=== PATIENT | male | born 1945 | race Caucasian/White ===

== ENCOUNTER 2023-02-26 14:51 | Observation (INO) | payer MEDICARE, BC ==
[2023-02-26] MEDS ORDERED: Sodium Chloride 0.9% 1,000 ML IV ONE (15:06)
[2023-02-26 15:36] LABS: ANION GAP 12.9 mmol/L (5-15); CHLORIDE,CL 117 mmol/L (98-107); SODIUM,NA 145 mmol/L (136-145)
[2023-02-26 15:51] LABS: ESTIMATED GFR 104 mL/min (>=60)
[2023-02-26] MEDS ORDERED: Potassium Chloride 20 MEQ in Premix Bag 1 BAG IV ONE (16:51)
[2023-02-26] MEDS ORDERED: NS with KCl 40mEq 1,000 ML IV SCH (17:00)
[2023-02-26] MEDS ORDERED: Iopamidol 755 Mg/ML 75 ML Bottle IVPUSH ONE (17:19)
[2023-02-26] MEDS ORDERED: Sodium Chloride 0.9% 50 ML IV SCH (17:30)
[2023-02-26] MEDS ORDERED: Ondansetron 4 MG/2 ML SDV IV PRN (19:37)
[2023-02-26 20:07] LABS: ANION GAP 9.9 mmol/L (5-15); CHLORIDE,CL 105 mmol/L (98-107); ESTIMATED GFR 86 mL/min (>=60); SODIUM,NA 137 mmol/L (136-145)
[2023-02-26] MEDS ORDERED: Sodium Chloride 0.9% 250 ML IV SCH (20:30)
[2023-02-26] MEDS: Sodium Chloride 0.9% 1,000 ML IV SCH (20:59)
[2023-02-27] MEDS: Sodium Chloride 0.9% 1,000 ML IV SCH (03:43)
[2023-02-27 07:53] LABS: ANION GAP 13.8 mmol/L (5-15)
[2023-02-27] MEDS ORDERED: Magnesium Oxide 500 MG Tab PO ONE (09:05)
[2023-02-27] MEDS ORDERED: Loperamide 2 MG Cap PO ONE (09:11)
== END 2023-02-27 10:28 | disposition home or self-care (01) ==
LOC: KA.ED 14:51 → KA.MS 18:15 → KA.ED 18:30 → KA.MS 19:00 → UNDOADMOB 19:00 → UNDODISOB 02-27 10:28
PROVIDERS: ADMIT Physician Assistant; ATTEND Family Medicine
DX: R55 Syncope and collapse (principal); E87.6 Hypokalemia; K52.9 Noninfective gastroenteritis and colitis, unspecified; D70.9 Neutropenia, unspecified; D64.9 Anemia, unspecified; D69.6 Thrombocytopenia, unspecified; E87.8 Other disorders of electrolyte and fluid balance, not elsewhere classified; R73.03 Prediabetes; E66.9 Obesity, unspecified; M19.90 Unspecified osteoarthritis, unspecified site; Z79.899 Other long term (current) drug therapy; Z98.890 Other specified postprocedural states; Z68.32 Body mass index [BMI] 32.0-32.9, adult
CPT/HCPCS: 36415; 70450; 74177; 80053; 81001; 82330; 82607; 82746; 83605; 83735; 84100; 84484; 85025; 86140; 96365; 99285; A9270; J3480; J3490; J7030; Q9967; 93010; 96361; 99223; G0378

== ENCOUNTER 2023-11-16 18:24 | Emergency (ER) | payer MEDICARE, BC ==
[2023-11-16] MEDS ORDERED: Sodium Chloride 0.9% 10 ML Syringe FLUSH PRN (18:38)
[2023-11-16 18:42] LABS: BASOPHILS ABSOLUTE AUTO 0.01 10^3/uL (0.00-0.10); BASOPHILS PERCENT AUTO 0.1 % (0.0-1.0); EOSINOPHILS ABSOLUTE AUTO 0.01 10^3/uL (0.10-0.30); EOSINOPHILS PERCENT AUTO 0.1 % (1.0-3.0); HEMATOCRIT 51.9 % (40.0-52.0); HEMOGLOBIN 17.4 g/dL (13.0-17.0); IMMATURE GRAN ABSOLUTE AUTO 0.03 10^3/uL (0.00-0.50); IMMATURE GRAN PERCENT AUTO 0.3 % (0.0-5.0); LYMPHOCYTES ABSOLUTE AUTO 0.64 10^3/uL (1.00-4.00); LYMPHOCYTES PERCENT AUTO 5.9 % (20.0-40.0); MEAN CORPUSCULAR HGB CONC 33.5 g/dL (32.0-36.0); MEAN CORPUSCULAR VOLUME 89.5 fL (82.0-92.0); MEAN PLATELET VOLUME 9.8 fL (7.4-10.4); MONOCYTES PERCENT AUTO 4.6 % (2.0-8.0); NEUTROPHILS ABSOLUTE AUTO 9.69 10^3/uL (2.50-7.00); PLATELET COUNT,PLT 192 10^3/uL (150-400); WHITE BLOOD CELL COUNT,WBC 10.88 10^3/uL (5.00-10.00)
[2023-11-16 18:57] LABS: ALANINE AMINOTRANSFERASE,ALT 19 U/L (14-63); ALBUMIN 3.72 g/dL (3.40-5.00); ALKALINE PHOSPHATASE 75 U/L (46-116); ANION GAP 15.2 mmol/L (5-15); ASPARTATE AMNIOTRANSFERASE,AST 15 U/L (15-37); BILIRUBIN TOTAL 0.9 mg/dL (0.2-1.0); BLOOD UREA NITROGEN,BUN 16 mg/dL (7-18); CALCIUM 8.5 mg/dL (8.7-10.3); CARBON DIOXIDE,CO2 22.6 mmol/L (21.0-32.0); CHLORIDE,CL 102 mmol/L (98-107); CREATININE 0.93 mg/dL (0.51-1.17); EST CRCL DRUG DOSING (CG) 74.17 mL/min; GLUCOSE RANDOM 130 mg/dL (70-140); POTASSIUM,K 3.8 mmol/L (3.5-5.1); PROTEIN TOTAL,TP 7.9 g/dL (6.4-8.2); SODIUM,NA 136 mmol/L (136-145)
[2023-11-16 18:58] LABS: ESTIMATED GFR 85 mL/min (>=60)
[2023-11-16 19:27] LABS: INFLUENZA A NAA NEGATIVE (NEGATIVE); INFLUENZA B NAA NEGATIVE (NEGATIVE); RESPIRATORY SYNCYTIAL VIR NAA NEGATIVE (NEGATIVE)
[2023-11-16 19:28] LABS: CORONAVIRUS COVID-19 NAA NEGATIVE (NEGATIVE)
== END 2023-11-16 19:45 | disposition home or self-care (01) ==
LOC: KA.ED 18:24
DX: S00.03XA Contusion of scalp, initial encounter (principal); J40 Bronchitis, not specified as acute or chronic; Z88.0 Allergy status to penicillin; Z20.822 Contact with and (suspected) exposure to COVID-19; X58.XXXA Exposure to other specified factors, initial encounter
CPT/HCPCS: 0241U; 70450; 71045; 80053; 84484; 85025; 93010; 99284; 99285

== ENCOUNTER 2024-12-06 22:59 | Observation (INO) | payer MEDICARE, BC ==
[2024-12-06] MEDS ORDERED: Sodium Chloride 0.9% 10 ML Syringe FLUSH PRN (23:02)
[2024-12-06 23:16] LABS: BASOPHILS ABSOLUTE AUTO 0.02 10^3/uL (0.00-0.10); BASOPHILS PERCENT AUTO 0.2 % (0.0-1.0); HEMATOCRIT 44.3 % (40.0-52.0); HEMOGLOBIN 15.6 g/dL (13.0-17.0); IMMATURE GRAN ABSOLUTE AUTO 0.01 10^3/uL (0.00-0.04); IMMATURE GRAN PERCENT AUTO 0.1 % (0.0-0.4); LYMPHOCYTES ABSOLUTE AUTO 1.99 10^3/uL (1.00-4.00); LYMPHOCYTES PERCENT AUTO 15.3 % (20.0-40.0); MEAN CORPUSCULAR HEMOGLOBIN 31.3 pg (27.0-31.0); MEAN CORPUSCULAR HGB CONC 35.2 g/dL (32.0-36.0); MEAN CORPUSCULAR VOLUME 88.8 fL (82.0-92.0); MEAN PLATELET VOLUME 9.4 fL (7.4-10.4); MONOCYTES ABSOLUTE AUTO 1.19 10^3/uL (0.10-0.80); MONOCYTES PERCENT AUTO 9.1 % (2.0-8.0); NEUTROPHILS ABSOLUTE AUTO 9.83 10^3/uL (2.50-7.00); NEUTROPHILS PERCENT AUTO 75.3 % (50.0-70.0); PLATELET COUNT,PLT 108 10^3/uL (150-400); RED BLOOD CELL COUNT 4.99 10^6/uL (4.50-6.00); RED CELL DISTRIBUTION WIDTH 12.4 % (11.5-14.5); WHITE BLOOD CELL COUNT,WBC 13.04 10^3/uL (5.00-10.00)
[2024-12-06] MEDS: Sodium Chloride 0.9% 1,000 ML IV ONE (23:28)
[2024-12-06 23:38] LABS: ALBUMIN 2.87 g/dL (3.40-5.00); CALCIUM 8.4 mg/dL (8.7-10.3); CARBON DIOXIDE,CO2 22.3 mmol/L (21.0-32.0); CREATININE 1.06 mg/dL (0.51-1.17); EST CRCL DRUG DOSING (CG) 64.06 mL/min; POTASSIUM,K 3.3 mmol/L (3.5-5.1); PROTEIN TOTAL,TP 7.2 g/dL (6.4-8.2)
[2024-12-06] MEDS: Acetaminophen 500 MG Tab PO ONE (23:52)
[2024-12-06] MEDS: Ondansetron 4 MG/2 ML SDV IVPUSH ONE (23:53)
[2024-12-07] MEDS ORDERED: Ondansetron 4 MG/2 ML SDV IV PRN (00:56)
[2024-12-07] MEDS ORDERED: Acetaminophen 325 MG Tab PO PRN (00:56)
[2024-12-07] MEDS: Potassium Chloride 20 MEQ Tab.ER PO ONE (01:46)
[2024-12-07] MEDS: Oseltamivir 75 MG Cap PO SCH (01:47)
[2024-12-07 07:06] LABS: APPEARANCE,URINE SLIGHTLY CLOUDY (CLEAR); BILIRUBIN,URINE NEGATIVE (NEGATIVE); COLOR,URINE DARK YELLOW (YELLOW); GLUCOSE,URINE NEGATIVE (NEGATIVE); KETONES,URINE 15 mg/dL (NEGATIVE); LEUKOCYTE ESTERASE,URINE SMALL (NEGATIVE); NITRITE,URINE POSITIVE (NEGATIVE); OCCULT BLOOD,URINE TRACE-LYSED (NEGATIVE); PH,URINE 5.5 (5.0-9.0); PROTEIN,URINE 30 mg/dL (NEGATIVE)
[2024-12-07 07:07] LABS: BACTERIA,URINE FEW /HPF (NONE TO FEW); EPITHELIAL CELLS,URINE RARE /LPF; HYALINE CASTS,URINE MODERATE; RBC,URINE 0-5 /HPF (0-5)
[2024-12-07 07:49] LABS: BASOPHILS ABSOLUTE AUTO 0.01 10^3/uL (0.00-0.10); BASOPHILS PERCENT AUTO 0.1 % (0.0-1.0); EOSINOPHILS ABSOLUTE AUTO 0.01 10^3/uL (0.10-0.30); EOSINOPHILS PERCENT AUTO 0.1 % (1.0-3.0); HEMATOCRIT 43.4 % (40.0-52.0); HEMOGLOBIN 14.7 g/dL (13.0-17.0); IMMATURE GRAN ABSOLUTE AUTO 0.02 10^3/uL (0.00-0.04); IMMATURE GRAN PERCENT AUTO 0.2 % (0.0-0.4); LYMPHOCYTES ABSOLUTE AUTO 1.28 10^3/uL (1.00-4.00); LYMPHOCYTES PERCENT AUTO 12.3 % (20.0-40.0); MEAN CORPUSCULAR HEMOGLOBIN 30.3 pg (27.0-31.0); MEAN CORPUSCULAR HGB CONC 33.9 g/dL (32.0-36.0); MEAN CORPUSCULAR VOLUME 89.5 fL (82.0-92.0); MEAN PLATELET VOLUME 9.3 fL (7.4-10.4); MONOCYTES ABSOLUTE AUTO 0.68 10^3/uL (0.10-0.80); MONOCYTES PERCENT AUTO 6.5 % (2.0-8.0); NEUTROPHILS ABSOLUTE AUTO 8.43 10^3/uL (2.50-7.00); NEUTROPHILS PERCENT AUTO 80.8 % (50.0-70.0); PLATELET COUNT,PLT 106 10^3/uL (150-400); RED BLOOD CELL COUNT 4.85 10^6/uL (4.50-6.00); RED CELL DISTRIBUTION WIDTH 12.3 % (11.5-14.5); WHITE BLOOD CELL COUNT,WBC 10.43 10^3/uL (5.00-10.00)
[2024-12-07 08:06] LABS: CALCIUM 8.3 mg/dL (8.7-10.3); CARBON DIOXIDE,CO2 26.4 mmol/L (21.0-32.0); CREATININE 1.02 mg/dL (0.51-1.17); EST CRCL DRUG DOSING (CG) 66.57 mL/min; POTASSIUM,K 4.4 mmol/L (3.5-5.1)
[2024-12-07] MEDS: Enoxaparin 40 MG/0.4 ML Syringe SUBCUT SCH (09:07)
[2024-12-07 13:33] VITALS: BP 125/71; PULSE 72
== END 2024-12-07 13:28 | disposition home or self-care (01) ==
LOC: KA.ED 22:59 → KA.MS 12-07
PROVIDERS: ADMIT Internal Medicine; ATTEND Internal Medicine
DX: R55 Syncope and collapse (principal); Z88.0 Allergy status to penicillin
CPT/HCPCS: 36415; 71045; 80048; 80053; 81001; 83605; 83690; 83735; 84484; 85025; 87040; 87086; 87088; 87186; 87428-QW; 93005; 93010; 96361; 96372; 96374; 99284; 99285-25; A9270-GY; G0378; J1650; J2405; J7030; Q3014